=== PATIENT | female | born 1950 | race Caucasian/White ===

== ENCOUNTER 2016-11-13 15:43 | Emergency (ER) | payer MEDICARE, OTHER ==
[~2016-11-13] VITALS: Ht 160 cm; Wt 58.6 kg
[~2016-11-13 15:43] MED LIST: /ESCI10TA PO; /ESCI20TA PO; /PREG25CA PO; /PROC10TA PO; ALPR1TAB3 PO; BACT800T5 PO; BRIN1TAB3 PO; CLON0.25 PO; CRES10TA32 PO; CRES20TA PO; CRES5TAB PO; CYMB60CA3 PO; DIAZ5TAB PO; DULO1CAP3 PO; FLAG500T PO; GABA-282 PO; GABA600T PO; KEPP500T4 PO; KEPP500T6 PO; KLON0.5T PO; LEVO25TA4 PO; LEVO25TA5 PO; LEVO750T PO; METAPKT PO; MICR10CA PO; MYRB25TA PO; NADO20TA PO; NADO20TA2 PO; NEUR600T PO; NEUROTIN PO; PAXI20TA3 PO; RISP0.252 PO; RISP0.253 PO; RISP0.5T3 PO; SYNT25TA PO; TRAM50TA2 PO; TRAZ100T4 PO; TRAZO50TA PO; ULTR50TA PO; VALI5TAB PO; VITA50003 PO; XANA1TAB2 PO; [UNRECOGNIZED DRUG - CODE] PO
[2016-11-13 17:15] LABS: BASO % 0.4 % (0.0-1.0); EOS # 0.1 K/mm3 (0.0-0.50); EOS % 1.2 % (0.0-3.0); LARGE UNSTAINED CELL # 0.1 K/mm3 (0.0-0.4); LARGE UNSTAINED CELL % 1.8 % (0.0-4.0); LYMPH # 0.8 K/mm3 (1.5-4.5); LYMPH % 15.8 % (24.0-44.0); MEAN CORPUSCULAR HEMOGLOBIN 31.1 pg (27.0-33.0); MEAN CORPUSCULAR HGB CONC 32.8 g/dl (32.0-36.5); MEAN CORPUSCULAR VOLUME 94.7 fl (80.0-96.0); MONO # 0.4 K/mm3 (0.0-0.8); MONO % 7.6 % (0.0-5.0); NEUTROPHILS # 3.8 K/mm3 (1.8-7.7); NEUTROPHILS % 73.3 % (36.0-66.0); PLATELET COUNT, AUTOMATED 242 k/mm3 (150-450); WHITE BLOOD COUNT 5.2 K/mm3 (4.0-10.0)
--- NOTE | 2016-11-13 17:34 | REP ---
Chest one-view HISTORY: Chest pain Comparison: 05/29/2016 The lungs are clear. The heart is normal in size. The pulmonary vasculature is normal in appearance. An [id number] catheter is present. Impression: No acute disease. Signed by Wilfredo Esquivel MD 11/13/2016 05:26 P
[2016-11-13 17:39] VITALS: BP 150/85
[2016-11-13] MEDS ORDERED: NITROGLYCERIN 0.4 MG SUBL TABLET SL STA (17:39)
[2016-11-13] MEDS ORDERED: ASPIRIN 81 MG CHEW TABLET PO ONE (17:45)
--- NOTE | 2016-11-13 18:21 | ECGEPIP ---
Stationary ECG Study [facility] - ED Test Date: 2016-11-13 Pat Name: MOUSTAPHA AVILES Department: Room: - Gender: F Vp Respiratory: elsa : 1950 Requested By: Cara Patterson Order Number: [id number] Reading MD: Aron Cheatham Measurements Intervals [place] Rate: 60 P: 55 [place]: 110 QRS: 50 QRSD: 78 T: 55 QT: 408 QTc: 409 Interpretive Statements SINUS RHYTHM WITH SHORT MI INTERVAL Electronically Signed On 11-13-2016 18:20:56 EDT by Aron Cheatham
[2016-11-13 19:40] LABS: ALBUMIN 3.1 GM/DL (3.2-5.2); ALBUMIN/GLOBULIN RATIO 0.94 (1.00-1.93); ALKALINE PHOSPHATASE 95 U/L (45-117); ALT/SGPT 12 U/L (12-78); ANION GAP 6 MEQ/L (8-16); BILIRUBIN,DIRECT < 0.1 MG/DL (0.0-0.2); BILIRUBIN,TOTAL 0.2 MG/DL (0.2-1.0); BLOOD UREA NITROGEN 7 MG/DL (7-18); CALCIUM LEVEL 8.6 MG/DL (8.8-10.2); CARBON DIOXIDE LEVEL 30 MEQ/L (21-32); CHLORIDE LEVEL 106 MEQ/L (98-107); CREATININE FOR GFR 0.95 MG/DL (0.55-1.02); GLOMERULAR FILTRATION RATE > 60.0 (>45); GLUCOSE, FASTING 95 MG/DL (80-110); POTASSIUM SERUM 4.1 MEQ/L (3.5-5.1); SODIUM LEVEL 142 MEQ/L (136-145); TOTAL PROTEIN 6.4 GM/DL (6.4-8.2)
[2016-11-13 19:45] LABS: AST/SGOT 13 U/L (15-37)
[2016-11-13 23:04] VITALS: BP 134/75
--- NOTE | 2016-11-14 06:01 | ECGEPIP ---
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
== END 2016-11-14 00:02 | disposition home or self-care (01) ==
LOC: M ED 17:46
DX: R07.9 Chest pain, unspecified (principal); I11.0 Hypertensive heart disease with heart failure; E78.5 Hyperlipidemia, unspecified; G40.909 Epilepsy, unspecified, not intractable, without status epilepticus; F41.9 Anxiety disorder, unspecified; J30.1 Allergic rhinitis due to pollen; Z90.79 Acquired absence of other genital organ(s); Z90.11 Acquired absence of right breast and nipple; Z85.3 Personal history of malignant neoplasm of breast; Z79.899 Other long term (current) drug therapy; Z91.011 Allergy to milk products

== ENCOUNTER 2016-11-30 08:53 | Emergency (ER) | payer MEDICARE, OTHER ==
[~2016-11-30] VITALS: Ht 160 cm; Wt 58.2 kg
[~2016-11-30 08:53] MED LIST changes: +KEPP1TAB PO; -KEPP500T6 PO; +PAXI20TA29 PO; -PAXI20TA3 PO; +TRAZ-136 PO; -TRAZ100T4 PO; +VITA1CAP40 PO; -VITA50003 PO
[2016-11-30] MEDS ORDERED: CLON0.5T PO ×2 (10:52→11:54)
[2016-11-30] MEDS ORDERED: clonazePAM 0.5 MG TAB PO ONE (11:15)
[2016-11-30 12:06] VITALS: BP 144/85
== END 2016-11-30 12:07 | disposition home or self-care (01) ==
LOC: M ED 09:53
DX: F41.9 Anxiety disorder, unspecified (principal); Z91.14 Patient's other noncompliance with medication regimen; F32.9 Major depressive disorder, single episode, unspecified; Z79.899 Other long term (current) drug therapy; Z91.011 Allergy to milk products; Z91.09 Other allergy status, other than to drugs and biological substances

== ENCOUNTER → 2017-02-09 | Outpatient (CLI) | payer MEDICARE, OTHER ==
[~2017-02-09] MED LIST changes: +BRIN1TAB2 PO; +CLON0.5T PO; +DIAZ2TAB PO; +DOXE25CA PO; +HYDR-3716 PO; +MIRT1TAB PO; +OMEP40CA2 PO; +PROP10TA56 PO; +ROSU10TA2 PO; +VALI2TAB PO
[2017-02-09 13:08] LABS: BLOOD UREA NITROGEN 10 MG/DL (7-18); CREATININE FOR GFR 0.76 MG/DL (0.55-1.02); GLOMERULAR FILTRATION RATE > 60.0 (>45)
[2017-02-09 13:09] LABS: INR 0.89
== END ==
LOC: M WUC 09:46
PROVIDERS: ATTEND Internal Medicine Pulmonary Disease
DX: R91.8 Other nonspecific abnormal finding of lung field (principal); Z01.812 Encounter for preprocedural laboratory examination; Z79.01 Long term (current) use of anticoagulants

== ENCOUNTER → 2017-02-12 | Outpatient (CLI) | payer MEDICARE, OTHER ==
--- NOTE | 2017-02-12 12:14 | REP ---
MRI BRAIN WITHOUT AND WITH CONTRAST: 02/12/2017. Comparison: 06/01/2016, 08/16/2013, CT brain 05/29/2016. Technique: sagittal T1 with axial T1, T2 FLAIR, diffusion weighted images and ADC mapping sequences followed by infusion of 4 ml of ProHance and both coronal and axial at T1 sequences performed. Clinical history: Ataxia, repeated falls. Findings: The lateral ventricles are midline, symmetric, mildly prominent and proportionate to the diffuse cerebral atrophy. That atrophy is greatest in the temporal lobes and mild throughout. There are scattered punctate deep and subcortical white matter hyperintense T2 and FLAIR foci frontal and parietal lobes with some periventricular white matter changes as well. The basal ganglia show some hyperintense T2 foci suggesting dilated spaces of Virchow as benign findings. There is no vascular territory infarct, hemorrhage, mass or mass effect. No extra-axial fluid collection is noted. The cantu-white junction is maintained. Brainstem unremarkable. Cerebellum shows minimal atrophy. Basal cisterns are intact. Diffusion weighted images and ADC mapping sequence without evidence of restricted water diffusion. After contrast administration, there is no abnormal meningeal enhancement, gyriform enhancement, abnormal vascular lesion or enhancing mass. Orbits and contents symmetric and unremarkable. Seventh/eighth cranial nerve complexes and mastoids intact. Visualized sinuses clear. Corpus callosum, optic chiasm, and pituitary were normal. No cerebellar tonsillar ectopia. On the enhanced coronal images, there is some minimal sinus mucosal thickening or enhancement in the ethmoids. Impression: 1. Diffuse atrophy and small vessel ischemic changes noted without acute infarct, progression from prior studies, hemorrhage, mass or mass effect. Atrophy greatest in the temporal lobes. 2. Brainstem and cerebellum without acute finding and scattered white matter tract lesions are grossly stable. 3. No restricted water diffusion. Signed by Lazaro Albarado MD 02/12/2017 03:50 P
== END ==
LOC: M PLARAD 09:34
PROVIDERS: ATTEND Internal Medicine Pulmonary Disease
DX: R29.6 Repeated falls (principal)
CPT/HCPCS: 70553; A9576

== ENCOUNTER 2017-04-10 11:37 | Inpatient (IN) | payer MEDICARE, OTHER ==
[~2017-04-10] VITALS: Ht 157.5 cm; Wt 62.9 kg
[~2017-04-10 11:37] MED LIST changes: -BRIN1TAB2 PO; -DIAZ2TAB PO; -DOXE25CA PO; -HYDR-3716 PO; -MIRT1TAB PO; -OMEP40CA2 PO; -PROP10TA56 PO; -ROSU10TA2 PO; -VALI2TAB PO
[2017-04-10] MEDS ORDERED: DOXE25CA PO (12:03)
[2017-04-10] MEDS ORDERED: TRAZ-136 PO (12:03)
[2017-04-10] MEDS ORDERED: OMEP40CA2 PO (12:03)
[2017-04-10] MEDS ORDERED: HYDR-3716 PO (12:03)
[2017-04-10] MEDS ORDERED: ROSU10TA2 PO (12:03)
[2017-04-10] MEDS ORDERED: VALI2TAB PO (12:03)
[2017-04-10] MEDS ORDERED: PROP10TA56 PO (12:03)
[2017-04-10] MEDS ORDERED: BRIN1TAB2 PO (12:03)
[2017-04-10] MEDS ORDERED: DIAZ2TAB PO ×2 (12:03→17:51)
[2017-04-10] MEDS ORDERED: MIRT1TAB PO (12:03)
[2017-04-10] MEDS ORDERED: diazePAM 2 MG TAB PO ONE (13:15)
[2017-04-10] MEDS ORDERED: ACETAMINOPHEN TAB 650MG DOSE (2X325MG) PO ONE (13:15)
[2017-04-10] MEDS ORDERED: PROPRANOLOL 10 MG TAB PO ONE (13:15)
--- NOTE | 2017-04-10 13:58 | REP ---
Left femur two views: The distal 3/4's of the femur are included on the film. The hip is not included. There is no fracture or dislocation in the visible portion of the femur. No calcifications or foreign bodies. Impression: Negative femur as described. Signed by Tang John MD 04/10/2017 01:49 P
[2017-04-10 14:08] LABS: BASO % 0.1 % (0.0-1.0); IMMATURE GRANULOCYTE % 0.4 % (0-0); LYMPH # 0.5 10^3/uL (1.5-4.5); LYMPH % 5.3 % (24.0-44.0); MEAN CORPUSCULAR HEMOGLOBIN 29.8 pg (27.0-33.0); MEAN CORPUSCULAR HGB CONC 32.4 g/dl (32.0-36.5); MEAN CORPUSCULAR VOLUME 92.1 fl (80.0-96.0); MONO # 0.9 10^3/uL (0.0-0.8); MONO % 9.4 % (0.0-5.0); NEUTROPHILS # 8.3 10^3/uL (1.8-7.7); NEUTROPHILS % 84.8 % (36.0-66.0); PLATELET COUNT, AUTOMATED 238 10^3/uL (150-450); RED CELL DISTRIBUTION WIDTH 13.8 % (11.5-14.5); WHITE BLOOD COUNT 9.8 10^3/uL (4.0-10.0)
--- NOTE | 2017-04-10 14:34 | REP ---
LEFT ANKLE, FOUR VIEWS: HISTORY: Trauma. There is no acute fracture or dislocation. The joint space is normal in appearance. IMPRESSION: There is no acute fracture or dislocation. Signed by Wilfredo Esquivel MD 04/10/2017 02:36 P
--- NOTE | 2017-04-10 14:37 | REP ---
LEFT TIBIA/FIBULA, FOUR VIEWS: HISTORY: Trauma. There is no acute fracture or dislocation. The joint spaces are normal in appearance. IMPRESSION: There is no acute fracture or dislocation. Signed by Wilfredo Esquivel MD 04/10/2017 03:00 P
--- NOTE | 2017-04-10 14:55 | REP ---
AP PELVIS AND LEFT HIP: 04/10/2017. Clinical history: Trauma. Comparison: X-ray abdomen 04/29/2015. Findings: AP pelvis: Pelvic ring intact. SI joints, sacral ala and foramina symmetric and normal. Symphysis pubis and pubic rami were intact. Degenerative changes in the lower lumbar facets and disc spaces. Hip joint space is symmetric. Small rim osteophytes acetabular roof. The hips show no visible fractures. The pubic rami intact. Left hip: AP and frog-leg views show minor rim osteophyte, acetabular roof but no fracture, subluxation or focal bone lesion of the hip. There is no evidence of AVN. No abnormal soft-tissue calcification or avulsions. Impression: 1. Some degenerative changes lower lumbar spine, but otherwise negative AP pelvis and left hip. Signed by Lazaro Albarado MD 04/10/2017 04:52 P
--- NOTE | 2017-04-10 15:00 | REP ---
CHEST AP LATERAL SUPINE: 04/10/2017. Clinical history: Fever and weakness. Comparison: Portable chest 11/13/2016, 05/29/2016. Findings: There is an indwelling left subclavian port catheter with tip in the SVC unchanged. The lung varghese are over penetrated. There appear to be nodular opacities bilaterally in the mid lung zone and partially in the right lower lung zone suggested. There is no effusion. Some increased vascularity in the upper lobes particularly on the right. No layering effusion or blunting of CP angles noted. No compression deformity in the spine. No paraspinal abnormality. Airway intact. Prior right mastectomy. Impression: 1. Densities projecting over the right and left mid lung zone and right lower lobe may be nodular infiltrates or other parenchymal lesions. The under penetrated chest limits this evaluation on the supine projection. 2. Indwelling left subclavian port catheter unchanged. 3. No acute bony finding, widening of the mediastinum, cardiomegaly or sonia edema. Consider chest CT. Signed by Lazaro Albarado MD 04/10/2017 04:52 P
--- NOTE | 2017-04-10 15:02 | REP ---
Emergency left lower extremity duplex venous ultrasound: History: Swelling. Question DVT. Findings: The deep veins from the left groin to the left popliteal fossa are swollen and contain hypoechoic thrombus consistent with occlusive DVT. No color flow is seen. The occlusive DVT involves the common femoral vein through the popliteal vein as well as the proximal several centimeters of the profunda femoral vein in the deep system. There is also occlusive thrombosis of the proximal aspect of the greater saphenous vein. Impression: Extensive occlusive left lower extremity deep vein thrombosis from the groin to the popliteal fossa. Signed by Raymond Peralta MD 04/10/2017 05:18 P
[2017-04-10 15:24] LABS: INR 1.12
[2017-04-10 15:36] LABS: ALBUMIN 2.3 GM/DL (3.2-5.2); ALBUMIN/GLOBULIN RATIO 0.61 (1.00-1.93); ALKALINE PHOSPHATASE 159 U/L (45-117); ALT/SGPT 25 U/L (12-78); ANION GAP 10 MEQ/L (8-16); AST/SGOT 47 U/L (7-37); BILIRUBIN,DIRECT 0.1 MG/DL (0.0-0.2); BILIRUBIN,TOTAL 0.4 MG/DL (0.2-1.0); BLOOD UREA NITROGEN 14 MG/DL (7-18); CALCIUM LEVEL 8.2 MG/DL (8.8-10.2); CARBON DIOXIDE LEVEL 26 MEQ/L (21-32); CHLORIDE LEVEL 98 MEQ/L (98-107); FREE T4 1.79 NG/DL (0.76-1.46); GLOMERULAR FILTRATION RATE > 60.0 (>45); GLUCOSE, FASTING 110 MG/DL (80-110); POTASSIUM SERUM 4.9 MEQ/L (3.5-5.1); SODIUM LEVEL 134 MEQ/L (136-145); TOTAL PROTEIN 6.1 GM/DL (6.4-8.2)
[2017-04-10] MEDS ORDERED: ISOVUE-370 76% 100ML VIAL (Q9967) As Ordered ONE (15:55)
[2017-04-10] MEDS ORDERED: ONDANSETRON 4MG/2ML VIAL (J2405) IV PRN (19:30)
[2017-04-10] MEDS ORDERED: NORCO, ANEXSIA 5/325MG TABLET (HYDROcodone/ACETAMINOPHEN) PO PRN (19:30)
[2017-04-10] MEDS ORDERED: ACETAMINOPHEN TAB 650MG DOSE (2X325MG) PO PRN (19:30)
[2017-04-10] MEDS: MORPHINE 2 MG/ML 1ML SYRINGE IV PRN (19:54)
[2017-04-10] MEDS: ENOXAPARIN 80 MG/0.8 ML SYRINGE (J1650) SC SCH (23:23)
[2017-04-10] MEDS: traZODone 50 MG TAB PO SCH (23:23)
[2017-04-10] MEDS: PROPRANOLOL 10 MG TAB PO SCH (23:24)
[2017-04-10] MEDS: DOXEPIN 25 MG CAP PO SCH (23:25)
[2017-04-10 23:50] VITALS: BP 130/64
[2017-04-11] MEDS: SENOKOT S TAB PO SCH ×3 (00:33→20:49)
[2017-04-11] MEDS: MIRTAZAPINE 7.5MG PER 1/2 TABLET PO SCH ×2 (00:33→20:49)
[2017-04-11] MEDS: diazePAM 2 MG TAB PO PRN ×4 (00:34→20:54)
[2017-04-11] MEDS: MORPHINE 2 MG/ML 1ML SYRINGE IV PRN ×2 (00:35→06:59)
--- NOTE | 2017-04-11 01:12 | HPE ---
DATE OF ADMISSION: 04/10/2017 Ms. Avalos is a patient of Lesly Armendariz. She sees Ron Steel at the mental health service at [facility]. CHIEF COMPLAINT: Terrible pain in her groin. HISTORY OF PRESENT ILLNESS: As follows: This is a 66-year-old with presumed recurrent breast cancer with lung and mediastinal metastases (METS) who has been considering hospice care at home. She has had increasing left leg pain and swelling. It has increased and she has a lot of pain in her left groin. She has fallen a couple times at home just because she has been very weak. She has had no focal weakness or seizures. She has been helped by her sister, lives in [facility], into the tub yesterday to get cleaned up. It was hard to get her into the tub, but almost impossible to get her out just because of generalized weakness and again, left leg has been painful and swollen. Lower extremity Doppler showed extensive deep venous thrombosis (DVT) and I was called for admission. PAST MEDICAL HISTORY: Known for: 1. Anxiety. 2. History of breast cancer on the right status post mastectomy. She tolerated one round of chemotherapy postoperatively. 3. Depression. 4. Hyperlipidemia. 5. Hypothyroidism. PAST SURGICAL HISTORY: Known for: 1. Right-sided mastectomy. 2. Hysterectomy. Socially, does not use tobacco or alcohol. She lives at home alone. She used to live with her mother until her mother . ALLERGIES: She has allergies listed to SANDOVAL, MILK PROTEIN EXTRACT. FAMILY HISTORY: Otherwise unremarkable. MEDICATION: Includes: - Riverside 7.5 - diazepam 2 mg five times a day for anxiety - doxepin 25 mg by mouth twice a day - vitamin D supplement - Synthroid - mirtazapine - omeprazole - propranolol - Crestor - trazodone - Myrbetriq - Trintellix REVIEW OF SYSTEMS: Notable for no headache, no visual changes, no runny nose, no sore throat. She has pain at the site of a lump on her right chest wall. She has had some shortness of breath without cough. She has had abdominal fullness with eating. She feels hungry, but has early satiety and then dyspepsia after eating. No focal weakness. Otherwise, unremarkable. PHYSICAL EXAMINATION: Temperature 100.4, pulse 102, respiratory rate 20, blood pressure 110/55, pulse oximetry 94% on room air. She is awake, appropriately interactive, somewhat flattened affect, answering questions appropriately with good insight into her current condition and decisions she has made regarding her cancer. Pupils equally round and reactive. Mucous membranes are moist. Neck is supple, thick. There is a baseball sized growth that is tender to touch, not particularly warm with smooth covering over her right upper chest medially located. There is a surgical mastectomy site as well. Heart is in a regular rate and rhythm. Normal S1, S2. Breathing is symmetrical and rested. Abdomen is soft, doughy, nontender. Right lower extremity is smaller than the left. Left is edematous, tender to touch with edema to the level of the groin. She is moving all four extremities. Facies are symmetrical. White cell count 9.8, hemoglobin 9.1, platelets of 238. INR 1.12. BUN 14, creatinine 0.9, sodium is 134, alkaline phosphatase 159, CK 357, troponin I less than 0.02, total protein 6.1, TSH is 0.83. Two blood cultures and a urine culture are pending. Lower extremity Doppler shows extensive occlusive left lower extremity DVT from the groin to the popliteal fossa. Chest x-ray shows densities over the right mid and left mid lung zone, right lower lobe, left subclavian port. No ankle fracture. No femur fracture. No femoral artery dissection. Hip and pelvis x-ray shows degenerative changes. Tib-fib shows no fracture or dislocation. My assessment is as follows: This is a 66-year-old, extensive left lower deep venous thrombosis (DVT) in the setting of untreated presumed recurrence of breast cancer. Patient will be admitted for a 2-night hospital stay to pursue further workup and treatment. Plan will be as follows: 1. Oncologic. Patient underwent mastectomy and partial chemotherapy electing not to pursue further care. It was not well tolerated. This summer, approximately in January of 2017, patient's cancer was re-visualized on a CT scan. [facility] was [facility], who started workup. She has elected not to pursue further workup. At this point, since that time, she has a growth on her right chest that has become larger, as well as this finding in her left leg. She has discussed this with her sister at some length and she thinks it about it constantly. She does not wish for any aggressive treatment and wants pain control and to remain comfortable. She suspects that she will pass away as a result of this illness. I did discuss a Medical Orders for Life-Sustaining Treatment (MOLST) form with her. She has suggested that she would like to be DO NOT RESUSCITATE, DO NOT INTUBATE, does not want a feeding tube, would be willing to try antibiotics and intravenous (IV) fluid. Would also like to speak with hospice. 2. Patient has left lower extremity DVT and possibly has a pulmonary embolism. Will be treated with Lovenox in the current setting. Plan would be for lifelong Lovenox should she wish to continue to treat this DVT. 3. Patient has poor pain control, has been using Riverside at home. Will upgrade to IV morphine for the moment. Will continue her benzodiazepines. 4. Patient has hyponatremia. 5. Patient has hypothyroidism. 6. Patient is noted to be anemic with normocytic cells. This is an increasing level of anemia from last lab in the computer, which was 12.5 on 11/13/2016. 7. Patient has history of depression. We will continue her diazepam, doxepin, mirtazapine, and trazodone. Myrbetriq is not on formulary, neither is Trintellix and those will not be ordered in the current setting.
[2017-04-11] MEDS ORDERED: LEVOTHYROXINE 25MCG TABLET (0.025MG) PO SCH (06:00)
[2017-04-11 07:09] LABS: MEAN CORPUSCULAR HEMOGLOBIN 28.7 pg (27.0-33.0); MEAN CORPUSCULAR HGB CONC 31.5 g/dl (32.0-36.5); MEAN CORPUSCULAR VOLUME 91.2 fl (80.0-96.0); PLATELET COUNT, AUTOMATED 245 10^3/uL (150-450); RED CELL DISTRIBUTION WIDTH 13.7 % (11.5-14.5); WHITE BLOOD COUNT 9.7 10^3/uL (4.0-10.0)
[2017-04-11 07:44] LABS: ANION GAP 9 MEQ/L (8-16); BLOOD UREA NITROGEN 11 MG/DL (7-18); CALCIUM LEVEL 7.9 MG/DL (8.8-10.2); CARBON DIOXIDE LEVEL 27 MEQ/L (21-32); CHLORIDE LEVEL 101 MEQ/L (98-107); CREATININE FOR GFR 0.79 MG/DL (0.55-1.02); GLOMERULAR FILTRATION RATE > 60.0 (>45); GLUCOSE, FASTING 119 MG/DL (80-110); POTASSIUM SERUM 4.2 MEQ/L (3.5-5.1); SODIUM LEVEL 137 MEQ/L (136-145)
[2017-04-11 08:00] VITALS: BP 142/69
--- NOTE | 2017-04-11 08:41 | REP ---
CT pulmonary angiogram with IV contrast: History: Weakness, tachycardia. Question pulmonary embolus. Procedure: According to the technologist notes, the exam could not be completed due to lack of IV access. I am informed that it was cancelled. Signed by Raymond Peralta MD 04/11/2017 11:08 A
[2017-04-11] MEDS: DOXEPIN 25 MG CAP PO SCH ×2 (08:51→20:49)
[2017-04-11] MEDS: ENOXAPARIN 80 MG/0.8 ML SYRINGE (J1650) SC SCH (08:51)
[2017-04-11] MEDS: NORCO, ANEXSIA 5/325MG TABLET (HYDROcodone/ACETAMINOPHEN) PO PRN ×2 (08:57→16:48)
[2017-04-11 09:00] VITALS: BP 142/69
[2017-04-11] MEDS ORDERED: ROSUVASTATIN 10 MG TAB (CRESTOR) PO SCH (09:00)
[2017-04-11] MEDS: PROPRANOLOL 10 MG TAB PO SCH (09:00)
[2017-04-11] MEDS ORDERED: OMEPRAZOLE 20 MG CAP PO SCH (09:00)
[2017-04-11] MEDS ORDERED: ISOVUE-370 76% 100ML VIAL (Q9967) As Ordered ONE (11:48)
[2017-04-11 13:26] LABS: BASO % 0.2 % (0.0-1.0); EOS % 0.2 % (0.0-3.0); IMMATURE GRANULOCYTE % 0.3 % (0-0); LYMPH # 0.7 10^3/uL (1.5-4.5); LYMPH % 7.6 % (24.0-44.0); MEAN CORPUSCULAR HEMOGLOBIN 28.9 pg (27.0-33.0); MEAN CORPUSCULAR HGB CONC 30.9 g/dl (32.0-36.5); MEAN CORPUSCULAR VOLUME 93.3 fl (80.0-96.0); MONO # 0.8 10^3/uL (0.0-0.8); MONO % 9.3 % (0.0-5.0); NEUTROPHILS # 7.2 10^3/uL (1.8-7.7); NEUTROPHILS % 82.4 % (36.0-66.0); PLATELET COUNT, AUTOMATED 264 10^3/uL (150-450); RED CELL DISTRIBUTION WIDTH 13.9 % (11.5-14.5); RETIC HEMOGLOBIN EQUIVALENT 25.2 pg (24-36); RETICULOCYTE % 1.8 % (0.5-1.5); WHITE BLOOD COUNT 8.8 10^3/uL (4.0-10.0)
[2017-04-11 13:36] LABS: REASON FOR REVIEW COMPREHENSIVE REVIEW
[2017-04-11 14:00] VITALS: BP 90/45
[2017-04-11] MEDS ORDERED: LORazepam 2 MG/ML VIAL (J2060) IV PRN (15:30)
[2017-04-11] MEDS ORDERED: SCOPOLAMINE 1.5 MG TRANSDERMAL TD PRN (15:30)
--- NOTE | 2017-04-11 16:25 | IPN ---
DATE: 04/11/2017 SUBJECTIVE: Patient is seen and examined in the morning. At the time of the morning encounter, patient stated that she had pain of the upper chest where she had the mass lesion. The pain is worsened with inspiration. There is pain in the right lower lobe. Patient is aware that she may have recurrence of breast tumor with metastasis. She is not sure how to proceed with the next step and she requires some time to discuss with the family member. Due to concern for pulmonary embolism (PE), patient was sent down for CT angiogram. Later, when the result was available, I presented the result to the patient and patient's sister, Ms. Sun, with regard to the CT angiogram findings. After some discussion, patient decided to pursue comfort measures only and a new Medical Orders for Life-Sustaining Treatment (MOLST) form was updated. OBJECTIVE: VITAL SIGNS: Temperature 98.7, pulse 105, respirations 18, blood pressure 90/45, pulse oximetry 97% in room air. GENERAL: Pale, fatigued, no sign of acute distress at the time of encounter, alert and oriented times three. HEENT: Normocephalic, atraumatic. Extraocular motors grossly intact. CARDIOVASCULAR: Positive S1, S2, tachycardic, heart rate greater than 100. LUNGS: Clear to auscultation bilaterally. ABDOMEN: Soft, nontender, nondistended. Bowel sounds present. MUSCULOSKELETAL: There is a mass-like bulging located at the mid left upper chest, mild discomfort to palpation. No lower extremity edema. No sign of cyanosis. LABORATORY DATA: WBC 9.7, hemoglobin 10.8, hematocrit 24.8, platelet count 245. Sodium 137, potassium 4.2, chloride 101, carbon dioxide 27, BUN 11, creatinine 0.79, GFR greater than 60, fasting glucose 119, calcium 7.9, lactate dehydrogenase is 368. IMAGING STUDIES: CT angiogram showed evidence of pulmonary embolism in the right lower lobe pulmonary artery and extending into the medial and posterior basal segmental arteries of the right lower lobe. There are numerous metastatic lesions throughout the chest involving all lobes, the largest about 2.3 cm. Anterior chest wall mass destroying the upper margin of the os sternum adjacent to the manubrium with a mass measuring 8.9 x 3.5 x 7.9 cm. There are also axillary and chest wall masses deep to the right pectoralis minor. ASSESSMENT: 1. Recurrent breast cancer with metastasis. 2. Pulmonary embolism with right lower extremity deep venous thrombosis (DVT). 3. Anxiety/depression. 4. Hyperlipidemia. 5. Hypothyroidism. 6. Anemia. PLAN: The new CT angiogram findings were discussed with the patient and patient is aware of the mass, most likely secondary to recurrent breast cancer with metastasis throughout the whole lung lobes. Patient also has a significant pulmonary embolism (PE) with a deep venous thrombosis (DVT). Patient decided to pursue comfort measures. A new Medical Orders for Life-Sustaining Treatment (MOLST) form was updated with patient's sister, Ms. Sun, as a witness and hospice has been consulted.
--- NOTE | 2017-04-11 18:07 | REP ---
CT ANGIOGRAM CHEST: 04/11/2017. Comparison: CXR 04/10/2017, CT chest 09/29/2013. Clinical history: Evaluate for pulmonary embolism. Dyspnea. Known breast carcinoma. Prior right mastectomy. Uterine carcinoma. Technique: The patient received bolus of 75 ml Isovue 370 with pulmonary angiogram protocol and thick slab MIP reformatting in coronal and sagittal reformats. Findings: There are bilateral lung nodules up to 2.2 cm, somewhat lobulated but all irregular in appearance and these correspond to the findings on CT. These are solid. In addition, there are areas of patchy atelectasis in the lower lung zones versus fibrosis. There is bilateral hilar and mediastinal adenopathy, pathologic size. AP window up to 10 mm. Subcarinal 11 mm. Left hilar 11 mm and right hilar 14 mm. The aorta without aneurysm or dissection. The main right and left pulmonary arteries are without filling defects. The right lower lobe pulmonary artery shows a filling defect as do the segmental arteries of the medial posterior basal segment. I do not see left lower lobe, upper lobe or lingular filling defects. There is no pleural effusion. No pneumothorax. The left axilla is without a mass. However, there are multiple enlarged nodes or masses in the right axilla and chest wall along with a very large sternomanubrial junction and central right paracentral chest with very large soft tissue mass measuring 8.9 cm transverse by 3.5 cm deep by 7.9 cm long. This shows destruction of the superior aspect of the sternum on the left. There are also chest wall masses on that right side deep to the pectoralis minor. I do not see supraclavicular mass. Bone windows show minor wedging mid thoracic vertebral body without paraspinal hematoma to suggest acute finding. No acute destructive lesion in the spine. Visualized ribs, scapulae, and portions of the clavicles seen were unremarkable. The upper abdomen shows that portion of liver, spleen, gallbladder and pancreas intact although none of these are seen in their entirety. Adrenal glands are normal. No hiatal hernia. Patient has had a prior right mastectomy. Impression: 1. There is CT evidence of a pulmonary thromboembolism in the right lower lobe pulmonary artery and extending into the medial and posterior basal segmental arteries of that right lower lobe. 2. There are numerous metastatic lesions throughout the chest involving all lobes, the largest about 2.3 cm. These are solid, no effusion. 3. Anterior chest wall mass destroying the upper margin of the sternum adjacent to the manubrium and with a mass measuring 8.9 x 3.5 x 7.9 cm. There are also axillary and chest wall masses deep to the right pectoralis minor. I do not see other destructive lesions to suggest other bony metastatic findings. Signed by Lazaro Albarado MD 04/12/2017 09:47 A
[2017-04-11] MEDS: ENOXAPARIN 60 MG/0.6 ML SYR (J1650) SC SCH (20:49)
[2017-04-11] MEDS: traZODone 50 MG TAB PO SCH (20:49)
--- NOTE | 2017-04-12 07:03 | ECGEPIP ---
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
[2017-04-12] MEDS: ENOXAPARIN 60 MG/0.6 ML SYR (J1650) SC SCH ×2 (08:22→20:15)
[2017-04-12] MEDS: NORCO, ANEXSIA 5/325MG TABLET (HYDROcodone/ACETAMINOPHEN) PO PRN ×3 (08:22→20:16)
[2017-04-12] MEDS: DOXEPIN 25 MG CAP PO SCH ×2 (08:22→20:15)
[2017-04-12] MEDS: SENOKOT S TAB PO SCH ×2 (08:22→20:15)
[2017-04-12] MEDS: diazePAM 2 MG TAB PO PRN ×3 (08:24→20:20)
[2017-04-12] MEDS: MORPHINE 2 MG/ML 1ML SYRINGE IV PRN ×2 (11:21→19:43)
--- NOTE | 2017-04-12 18:03 | IPNPDOC ---
Text Note Date of Service The patient was seen on 04/12/17. NOTE SUBJECTIVE: Patient is seen and examined in the morning. Patient still experience discomfort at the location where she has tumor recurrence. However, she states her pain is manageable with current pain medication regimen. OBJECTIVE: VITAL SIGNS: Listed below GENERAL: Pale, fatigued, no sign of acute distress at the time of encounter, alert and oriented times three. HEENT: Normocephalic, atraumatic. Extraocular motors grossly intact. CARDIOVASCULAR: Positive S1, S2, tachycardic, heart rate greater than 100. LUNGS: Clear to auscultation bilaterally. ABDOMEN: Soft, nontender, nondistended. Bowel sounds present. MUSCULOSKELETAL: There is a mass-like bulging located at the mid left upper chest, mild discomfort to palpation. No lower extremity edema. No sign of cyanosis. LABORATORY DATA: Listed below IMAGING STUDIES: CT angiogram showed evidence of pulmonary embolism in the right lower lobe pulmonary artery and extending into the medial and posterior basal segmental arteries of the right lower lobe. There are numerous metastatic lesions throughout the chest involving all lobes, the largest about 2.3 cm. Anterior chest wall mass destroying the upper margin of the os sternum adjacent to the manubrium with a mass measuring 8.9 x 3.5 x 7.9 cm. There are also axillary and chest wall masses deep to the right pectoralis minor. ASSESSMENT: 1. Recurrent breast cancer with metastasis. 2. Pulmonary embolism with right lower extremity deep venous thrombosis (DVT). 3. Anxiety/depression. 4. Hyperlipidemia. 5. Hypothyroidism. 6. Anemia. 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 Desires placement in hospice facility. Hospice service has been consulted. Continue current hospice medications. VS,Fishbone, I+O VS, Fishbone, I+O Vital Signs Date Time Temp Pulse Resp B/P (MAP) Pulse Ox O2 Delivery O2 Flow Rate FiO2 04/12/17 08:00 Room Air 04/11/17 14:00 98.7 105 18 90/45 (60) 97 I&O- Last 24 Hours up to 6 AM 04/13/17 06:00 Intake Total 360 ml Output Total 900 ml Balance -540 ml LEXUS GORDON DO Apr 12, 2017 18:03
[2017-04-12] MEDS: traZODone 50 MG TAB PO SCH (20:15)
[2017-04-12] MEDS: MOM 30ML SUSPENSION UDC PO PRN (20:15)
[2017-04-12] MEDS: MIRTAZAPINE 7.5MG PER 1/2 TABLET PO SCH (20:15)
[2017-04-13] MEDS: ENOXAPARIN 60 MG/0.6 ML SYR (J1650) SC SCH ×2 (08:36→19:48)
[2017-04-13] MEDS: DOXEPIN 25 MG CAP PO SCH ×2 (08:36→19:48)
[2017-04-13] MEDS: diazePAM 2 MG TAB PO PRN ×3 (08:36→19:53)
[2017-04-13] MEDS: SENOKOT S TAB PO SCH ×2 (08:36→19:48)
[2017-04-13] MEDS: NORCO, ANEXSIA 5/325MG TABLET (HYDROcodone/ACETAMINOPHEN) PO PRN ×3 (09:11→19:54)
[2017-04-13] MEDS: MORPHINE 2 MG/ML 1ML SYRINGE IV PRN ×3 (10:55→22:57)
--- NOTE | 2017-04-13 15:55 | IPNPDOC ---
Text Note Date of Service The patient was seen on 04/13/17. NOTE SUBJECTIVE: Patient is seen and examined in the morning. Patient still experience discomfort at the location where she has tumor recurrence. However, she states her pain is manageable with current pain medication regimen. No issue with oral intake. No shortness of breath. OBJECTIVE: GENERAL: Pale, fatigued, no sign of acute distress at the time of encounter, alert and oriented times three. HEENT: Normocephalic, atraumatic. Extraocular motors grossly intact. CARDIOVASCULAR: Positive S1, S2, tachycardic, heart rate greater than 100. LUNGS: Clear to auscultation bilaterally. ABDOMEN: Soft, nontender, nondistended. Bowel sounds present. MUSCULOSKELETAL: There is a mass-like bulging located at the mid left upper chest, mild discomfort to palpation. No lower extremity edema. No sign of cyanosis. IMAGING STUDIES: CT angiogram showed evidence of pulmonary embolism in the right lower lobe pulmonary artery and extending into the medial and posterior basal segmental arteries of the right lower lobe. There are numerous metastatic lesions throughout the chest involving all lobes, the largest about 2.3 cm. Anterior chest wall mass destroying the upper margin of the os sternum adjacent to the manubrium with a mass measuring 8.9 x 3.5 x 7.9 cm. There are also axillary and chest wall masses deep to the right pectoralis minor. ASSESSMENT: 1. Recurrent breast cancer with metastasis. 2. Pulmonary embolism with right lower extremity deep venous thrombosis (DVT). 3. Anxiety/depression. 4. Hyperlipidemia. 5. Hypothyroidism. 6. Anemia. 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 Desires placement in hospice facility. Hospice service has been consulted. Continue current hospice medications. Pain is adequately controlled. VS,Fishbone, I+O VS, Fishbone, I+O Vital Signs Date Time Temp Pulse Resp B/P (MAP) Pulse Ox O2 Delivery O2 Flow Rate FiO2 04/13/17 08:00 Room Air 04/12/17 20:46 18 04/11/17 14:00 98.7 105 90/45 (60) 97 I&O- Last 24 Hours up to 6 AM 04/14/17 06:00 Intake Total 360 ml Balance 360 ml LEXUS GORDON DO Apr 13, 2017 15:55
[2017-04-13] MEDS: traZODone 50 MG TAB PO SCH (19:48)
[2017-04-13] MEDS: MIRTAZAPINE 7.5MG PER 1/2 TABLET PO SCH (19:48)
[2017-04-13] MEDS: LORazepam 1 MG TAB PO PRN (22:57)
[2017-04-14] MEDS: diazePAM 2 MG TAB PO PRN ×5 (00:30→18:57)
[2017-04-14] MEDS: NORCO, ANEXSIA 5/325MG TABLET (HYDROcodone/ACETAMINOPHEN) PO PRN ×5 (00:31→18:57)
[2017-04-14] MEDS: DOXEPIN 25 MG CAP PO SCH ×2 (09:09→19:41)
[2017-04-14] MEDS: ENOXAPARIN 60 MG/0.6 ML SYR (J1650) SC SCH ×2 (09:10→19:40)
[2017-04-14] MEDS: SENOKOT S TAB PO SCH ×2 (09:10→19:40)
--- NOTE | 2017-04-14 11:45 | IPNPDOC ---
Text Note Date of Service The patient was seen on 04/14/17. NOTE SUBJECTIVE: Patient is seen and examined in the morning. Patient still experience discomfort at the location where she has tumor recurrence. However, she states her pain is manageable with current pain medication regimen. No issue with oral intake. No shortness of breath. No issue with urination or bowel movement. OBJECTIVE: GENERAL: Pale, fatigued, no sign of acute distress at the time of encounter, alert and oriented times three. HEENT: Normocephalic, atraumatic. Extraocular motors grossly intact. CARDIOVASCULAR: Positive S1, S2, tachycardic. LUNGS: Clear to auscultation bilaterally. ABDOMEN: Soft, nontender, nondistended. Bowel sounds present. MUSCULOSKELETAL: There is a mass-like bulging located at the mid left upper chest, mild discomfort to palpation. No lower extremity edema. No sign of cyanosis. IMAGING STUDIES: CT angiogram showed evidence of pulmonary embolism in the right lower lobe pulmonary artery and extending into the medial and posterior basal segmental arteries of the right lower lobe. There are numerous metastatic lesions throughout the chest involving all lobes, the largest about 2.3 cm. Anterior chest wall mass destroying the upper margin of the os sternum adjacent to the manubrium with a mass measuring 8.9 x 3.5 x 7.9 cm. There are also axillary and chest wall masses deep to the right pectoralis minor. ASSESSMENT: 1. Recurrent breast cancer with metastasis. 2. Pulmonary embolism with right lower extremity deep venous thrombosis (DVT). 3. Anxiety/depression. 4. Hyperlipidemia. 5. Hypothyroidism. 6. Anemia. 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 Desires placement in hospice facility. Hospice service has been consulted. Continue current hospice medications. Pain is adequately controlled. Patient is on waiting list for hospice facility. Will follow up with social service on Sunday. VS,Fishbone, I+O VS, Fishbone, I+O Vital Signs Date Time Temp Pulse Resp B/P (MAP) Pulse Ox O2 Delivery O2 Flow Rate FiO2 04/14/17 10:25 18 Room Air 04/11/17 14:00 98.7 105 90/45 (60) 97 FLYNNRaymondLEXUS DO Apr 14, 2017 11:45
[2017-04-14] MEDS: MORPHINE 2 MG/ML 1ML SYRINGE IV PRN ×2 (12:10→19:45)
[2017-04-14] MEDS: MIRTAZAPINE 7.5MG PER 1/2 TABLET PO SCH (19:40)
[2017-04-14] MEDS: traZODone 50 MG TAB PO SCH (19:41)
[2017-04-14] MEDS: LORazepam 1 MG TAB PO PRN (19:44)
[2017-04-14] MEDS: MORPHINE 10MG/0.5ML ORAL CONCENTRATE SOLUTION U/D SL PRN (22:28)
[2017-04-15] MEDS: MORPHINE 10MG/0.5ML ORAL CONCENTRATE SOLUTION U/D SL PRN ×9 (02:29→23:12)
[2017-04-15] MEDS: LORazepam 1 MG TAB PO PRN ×4 (02:29→20:36)
[2017-04-15] MEDS: NORCO, ANEXSIA 5/325MG TABLET (HYDROcodone/ACETAMINOPHEN) PO PRN ×5 (02:30→20:38)
[2017-04-15] MEDS: diazePAM 2 MG TAB PO PRN ×5 (04:54→23:11)
[2017-04-15] MEDS: DOXEPIN 25 MG CAP PO SCH ×2 (08:57→20:36)
[2017-04-15] MEDS: SENOKOT S TAB PO SCH ×2 (08:57→20:36)
[2017-04-15] MEDS: ENOXAPARIN 60 MG/0.6 ML SYR (J1650) SC SCH ×2 (08:58→20:35)
--- NOTE | 2017-04-15 14:14 | IPNPDOC ---
Text Note Date of Service The patient was seen on 04/15/17. NOTE SUBJECTIVE: Patient is seen and examined in the morning. She states her pain is manageable with current pain medication regimen. No issue with oral intake. No shortness of breath. No issue with urination or bowel movement. OBJECTIVE: GENERAL: Pale, fatigued, no sign of acute distress at the time of encounter, alert and oriented times three. HEENT: Normocephalic, atraumatic. Extraocular motors grossly intact. CARDIOVASCULAR: Positive S1, S2, tachycardic. LUNGS: Clear to auscultation bilaterally. ABDOMEN: Soft, nontender, nondistended. Bowel sounds present. MUSCULOSKELETAL: There is a mass-like bulging located at the mid left upper chest, mild discomfort to palpation. No lower extremity edema. No sign of cyanosis. IMAGING STUDIES: CT angiogram showed evidence of pulmonary embolism in the right lower lobe pulmonary artery and extending into the medial and posterior basal segmental arteries of the right lower lobe. There are numerous metastatic lesions throughout the chest involving all lobes, the largest about 2.3 cm. Anterior chest wall mass destroying the upper margin of the os sternum adjacent to the manubrium with a mass measuring 8.9 x 3.5 x 7.9 cm. There are also axillary and chest wall masses deep to the right pectoralis minor. ASSESSMENT: 1. Recurrent breast cancer with metastasis. 2. Pulmonary embolism with right lower extremity deep venous thrombosis (DVT). 3. Anxiety/depression. 4. Hyperlipidemia. 5. Hypothyroidism. 6. Anemia. 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 Desires placement in hospice facility. Hospice service has been consulted. Continue current hospice medications. Pain is adequately controlled. Patient is on waiting list for hospice facility. Will follow up with social service on Sunday. VS,Fishbone, I+O VS, Fishbone, I+O Vital Signs Date Time Temp Pulse Resp B/P (MAP) Pulse Ox O2 Delivery O2 Flow Rate FiO2 04/15/17 13:33 Room Air 04/15/17 12:05 16 04/11/17 14:00 98.7 105 90/45 (60 97 I&O- Last 24 Hours up to 6 AM 04/16/17 06:00 Intake Total 360 ml Output Total 220 ml Balance 140 ml LEXUS GORDON DO Apr 15, 2017 14:14
[2017-04-15] MEDS: MOM 30ML SUSPENSION UDC PO PRN (20:35)
[2017-04-15] MEDS: MIRTAZAPINE 7.5MG PER 1/2 TABLET PO SCH (20:36)
[2017-04-15] MEDS: traZODone 50 MG TAB PO SCH (20:37)
[2017-04-16] MEDS: MORPHINE 10MG/0.5ML ORAL CONCENTRATE SOLUTION U/D SL PRN ×8 (01:08→22:10)
[2017-04-16] MEDS: LORazepam 1 MG TAB PO PRN ×5 (01:09→22:09)
[2017-04-16] MEDS: NORCO, ANEXSIA 5/325MG TABLET (HYDROcodone/ACETAMINOPHEN) PO PRN ×5 (01:09→20:46)
[2017-04-16] MEDS: diazePAM 2 MG TAB PO PRN ×4 (04:54→20:45)
[2017-04-16] MEDS: DOXEPIN 25 MG CAP PO SCH ×2 (09:00→20:43)
[2017-04-16] MEDS: SENOKOT S TAB PO SCH ×2 (09:00→20:43)
[2017-04-16] MEDS: ENOXAPARIN 60 MG/0.6 ML SYR (J1650) SC SCH ×2 (09:00→20:43)
[2017-04-16] MEDS: MOM 30ML SUSPENSION UDC PO PRN (11:17)
--- NOTE | 2017-04-16 13:57 | IPNPDOC ---
Text Note Date of Service The patient was seen on 04/16/17. NOTE SUBJECTIVE: Patient is seen and examined in the morning. She states her pain is manageable with current pain medication regimen. No issue with oral intake. No shortness of breath. Starts having difficulty with bowel movements. OBJECTIVE: GENERAL: Pale, fatigued, no sign of acute distress at the time of encounter, alert and oriented times three. HEENT: Normocephalic, atraumatic. Extraocular motors grossly intact. CARDIOVASCULAR: Positive S1, S2, tachycardic. LUNGS: Clear to auscultation bilaterally. ABDOMEN: Soft, nontender, nondistended. Bowel sounds present. MUSCULOSKELETAL: There is a mass-like bulging located at the mid left upper chest, mild discomfort to palpation. No lower extremity edema. No sign of cyanosis. IMAGING STUDIES: CT angiogram showed evidence of pulmonary embolism in the right lower lobe pulmonary artery and extending into the medial and posterior basal segmental arteries of the right lower lobe. There are numerous metastatic lesions throughout the chest involving all lobes, the largest about 2.3 cm. Anterior chest wall mass destroying the upper margin of the os sternum adjacent to the manubrium with a mass measuring 8.9 x 3.5 x 7.9 cm. There are also axillary and chest wall masses deep to the right pectoralis minor. ASSESSMENT: 1. Recurrent breast cancer with metastasis. 2. Pulmonary embolism with right lower extremity deep venous thrombosis (DVT). 3. Anxiety/depression. 4. Hyperlipidemia. 5. Hypothyroidism. 6. Anemia. 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 Desires placement in hospice facility. Hospice service has been consulted. Continue current hospice medications. Pain is adequately controlled. Patient is on waiting list for hospice facility. Continue current management. VS,Fishbone, I+O VS, Fishbone, I+O Vital Signs Date Time Temp Pulse Resp B/P (MAP) Pulse Ox O2 Delivery O2 Flow Rate FiO2 04/16/17 11:49 16 Room Air 04/11/17 14:00 98.7 105 90/45 (60) 97 I&O- Last 24 Hours up to 6 AM 04/17/17 06:00 Intake Total 180 ml Output Total 325 ml Balance -145 ml LEXUS GORDON DO Apr 16, 2017 13:57
[2017-04-16] MEDS: MIRTAZAPINE 7.5MG PER 1/2 TABLET PO SCH (20:43)
[2017-04-16] MEDS: traZODone 50 MG TAB PO SCH (20:43)
[2017-04-16] MEDS: MIRALAX *UNIT DOSE* 17GM PACKET PO PRN (20:51)
[2017-04-17] MEDS: diazePAM 2 MG TAB PO PRN ×4 (00:51→20:38)
[2017-04-17] MEDS: NORCO, ANEXSIA 5/325MG TABLET (HYDROcodone/ACETAMINOPHEN) PO PRN ×5 (00:51→22:07)
[2017-04-17] MEDS: MORPHINE 10MG/0.5ML ORAL CONCENTRATE SOLUTION U/D SL PRN ×5 (00:52→20:38)
[2017-04-17] MEDS: LORazepam 1 MG TAB PO PRN ×4 (03:58→22:06)
[2017-04-17] MEDS: ENOXAPARIN 60 MG/0.6 ML SYR (J1650) SC SCH ×2 (08:39→20:38)
[2017-04-17] MEDS: SENOKOT S TAB PO SCH ×2 (08:39→20:38)
[2017-04-17] MEDS: DOXEPIN 25 MG CAP PO SCH ×2 (08:39→20:38)
[2017-04-17] MEDS: MOM 30ML SUSPENSION UDC PO PRN (08:43)
--- NOTE | 2017-04-17 11:38 | IPNPDOC ---
Text Note Date of Service The patient was seen on 04/17/17. NOTE SUBJECTIVE: Patient is seen and examined in the morning. She states her pain is manageable with current pain medication regimen. No issue with oral intake. No shortness of breath. Starts having difficulty with bowel movements. OBJECTIVE: GENERAL: Pale, fatigued, no sign of acute distress at the time of encounter, alert and oriented times three. HEENT: Normocephalic, atraumatic. Extraocular motors grossly intact. CARDIOVASCULAR: Positive S1, S2, tachycardic. LUNGS: Clear to auscultation bilaterally. ABDOMEN: Soft, nontender, nondistended. Bowel sounds present. MUSCULOSKELETAL: There is a mass-like bulging located at the mid left upper chest, mild discomfort to palpation. No lower extremity edema. No sign of cyanosis. IMAGING STUDIES: CT angiogram showed evidence of pulmonary embolism in the right lower lobe pulmonary artery and extending into the medial and posterior basal segmental arteries of the right lower lobe. There are numerous metastatic lesions throughout the chest involving all lobes, the largest about 2.3 cm. Anterior chest wall mass destroying the upper margin of the os sternum adjacent to the manubrium with a mass measuring 8.9 x 3.5 x 7.9 cm. There are also axillary and chest wall masses deep to the right pectoralis minor. ASSESSMENT: 1. Recurrent breast cancer with metastasis. 2. Pulmonary embolism with right lower extremity deep venous thrombosis (DVT). 3. Anxiety/depression. 4. Hyperlipidemia. 5. Hypothyroidism. 6. Anemia. 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 Desires placement in hospice facility. Hospice service has been consulted. Continue current hospice medications. Pain is adequately controlled. Patient is on waiting list for hospice facility. Continue current management. VS,Fishbone, I+O VS, Fishbone, I+O Vital Signs Date Time Temp Pulse Resp B/P (MAP) Pulse Ox O2 Delivery O2 Flow Rate FiO2 04/17/17 08:00 Room Air 04/17/17 07:50 16 04/11/17 14:00 98.7 105 90/45 (60) 97 I&O- Last 24 Hours up to 6 AM 04/18/17 06:00 Intake Total 240 ml Output Total 200 ml Balance 40 ml EDITH PEÑA MD Apr 17, 2017 11:38
[2017-04-17] MEDS: traZODone 50 MG TAB PO SCH (20:38)
[2017-04-17] MEDS: MIRTAZAPINE 7.5MG PER 1/2 TABLET PO SCH (20:38)
[2017-04-18] MEDS: LORazepam 1 MG TAB PO PRN ×6 (00:14→20:32)
[2017-04-18] MEDS: MORPHINE 10MG/0.5ML ORAL CONCENTRATE SOLUTION U/D SL PRN ×9 (00:14→22:47)
[2017-04-18] MEDS: NORCO, ANEXSIA 5/325MG TABLET (HYDROcodone/ACETAMINOPHEN) PO PRN ×2 (05:56→12:04)
[2017-04-18] MEDS: diazePAM 2 MG TAB PO PRN (05:56)
[2017-04-18] MEDS: SENOKOT S TAB PO SCH (08:40)
[2017-04-18] MEDS: DOXEPIN 25 MG CAP PO SCH ×2 (08:40→20:05)
[2017-04-18] MEDS: ENOXAPARIN 60 MG/0.6 ML SYR (J1650) SC SCH ×2 (08:40→20:05)
--- NOTE | 2017-04-18 10:38 | IPNPDOC ---
Text Note Date of Service The patient was seen on 04/18/17. NOTE SUBJECTIVE: patient complains of severe chest wall pain and left groin pain since yesterday evening. The pain meds have not been controlling the pain . She has no appetite because of the pain. No shortness of breath. OBJECTIVE: GENERAL: Pale, fatigued, no sign of acute distress at the time of encounter, alert and oriented times three. HEENT: Normocephalic, atraumatic. Extraocular motors grossly intact. CARDIOVASCULAR: Positive S1, S2, tachycardic. LUNGS: Clear to auscultation bilaterally. ABDOMEN: Soft, nontender, nondistended. Bowel sounds present. MUSCULOSKELETAL: There is a mass-like bulging located at the mid left upper chest, mild discomfort to palpation. No lower extremity edema. No sign of cyanosis. IMAGING STUDIES: CT angiogram showed evidence of pulmonary embolism in the right lower lobe pulmonary artery and extending into the medial and posterior basal segmental arteries of the right lower lobe. There are numerous metastatic lesions throughout the chest involving all lobes, the largest about 2.3 cm. Anterior chest wall mass destroying the upper margin of the os sternum adjacent to the manubrium with a mass measuring 8.9 x 3.5 x 7.9 cm. There are also axillary and chest wall masses deep to the right pectoralis minor. ASSESSMENT: 1. Recurrent breast cancer with metastasis : will increase roxanol. will also give ativan . will dc valium. 2. Pulmonary embolism with right lower extremity deep venous thrombosis (DVT). 3. Anxiety/depression. 4. Hyperlipidemia. 5. Hypothyroidism. 6. Anemia. 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 Desires placement in hospice facility. Hospice service has been consulted. Continue current hospice medications. Pain is adequately controlled. Patient is on waiting list for hospice facility. Continue current management. VS,Fishbone, I+O VS, Fishbone, I+O Vital Signs Date Time Temp Pulse Resp B/P (MAP) Pulse Ox O2 Delivery O2 Flow Rate FiO2 04/18/17 09:19 18 04/18/17 06:26 Room Air I&O- Last 24 Hours up to 6 AM 04/19/17 06:00 Intake Total 120 ml Balance 120 ml EDITH PEÑA MD Apr 18, 2017 10:38
[2017-04-18] MEDS ORDERED: ONDANSETRON 4 MG ORAL DISINTEGRATING TAB (S0181) PO PRN (19:00)
[2017-04-18] MEDS ORDERED: MAALOX 30 ML SUSP *UDC PO PRN (19:00)
[2017-04-18] MEDS: traZODone 50 MG TAB PO SCH (20:05)
[2017-04-18] MEDS: MIRTAZAPINE 7.5MG PER 1/2 TABLET PO SCH (20:05)
[2017-04-19] MEDS: MORPHINE 10MG/0.5ML ORAL CONCENTRATE SOLUTION U/D SL PRN ×9 (01:24→22:25)
--- NOTE | 2017-04-19 06:47 | IPNPDOC ---
Text Note Date of Service The patient was seen on 04/19/17. NOTE SUBJECTIVE: Pain better controlled this am after increasing the narcotics. Patient is comfortable. No shortness of breath. OBJECTIVE: GENERAL: Pale, fatigued, no sign of acute distress at the time of encounter, alert and oriented times three. HEENT: Normocephalic, atraumatic. Extraocular motors grossly intact. CARDIOVASCULAR: Positive S1, S2, tachycardic. LUNGS: Clear to auscultation bilaterally. ABDOMEN: Soft, nontender, nondistended. Bowel sounds present. MUSCULOSKELETAL: There is a mass-like bulging located at the mid left upper chest, mild discomfort to palpation. No lower extremity edema. No sign of cyanosis. IMAGING STUDIES: CT angiogram showed evidence of pulmonary embolism in the right lower lobe pulmonary artery and extending into the medial and posterior basal segmental arteries of the right lower lobe. There are numerous metastatic lesions throughout the chest involving all lobes, the largest about 2.3 cm. Anterior chest wall mass destroying the upper margin of the os sternum adjacent to the manubrium with a mass measuring 8.9 x 3.5 x 7.9 cm. There are also axillary and chest wall masses deep to the right pectoralis minor. ASSESSMENT: 1. Recurrent breast cancer with metastasis : will increase roxanol. will also give ativan . will dc valium. 2. Pulmonary embolism with right lower extremity deep venous thrombosis (DVT). 3. Anxiety/depression. 4. Hyperlipidemia. 5. Hypothyroidism. 6. Anemia. 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 Desires placement in hospice facility. Hospice service has been consulted. Continue current hospice medications. Pain is adequately controlled. Patient is on waiting list for hospice facility. Continue current management. VS,Fishbone, I+O VS, Fishbone, I+O Vital Signs Date Time Temp Pulse Resp B/P (MAP) Pulse Ox O2 Delivery O2 Flow Rate FiO2 04/19/17 06:04 17 04/18/17 20:44 Room Air EDITH PEÑA MD Apr 19, 2017 06:47
[2017-04-19] MEDS: DOXEPIN 25 MG CAP PO SCH ×2 (08:17→20:23)
[2017-04-19] MEDS: ENOXAPARIN 60 MG/0.6 ML SYR (J1650) SC SCH ×2 (08:18→20:23)
[2017-04-19] MEDS: LORazepam 1 MG TAB PO PRN ×4 (13:04→22:24)
[2017-04-19] MEDS ORDERED: MORPHINE 30 MG SA TAB PO ONE (17:30)
[2017-04-19] MEDS: traZODone 50 MG TAB PO SCH (20:23)
[2017-04-19] MEDS: MIRTAZAPINE 7.5MG PER 1/2 TABLET PO SCH (20:23)
[2017-04-19] MEDS ORDERED: MORPHINE 30 MG SA TAB PO SCH (21:00)
[2017-04-20] MEDS: LORazepam 1 MG TAB PO PRN ×9 (00:53→22:47)
[2017-04-20] MEDS: MORPHINE 10MG/0.5ML ORAL CONCENTRATE SOLUTION U/D SL PRN ×9 (00:53→22:47)
[2017-04-20] MEDS: DOXEPIN 25 MG CAP PO SCH ×2 (08:14→21:39)
[2017-04-20] MEDS: MORPHINE 30 MG SA TAB PO SCH ×2 (08:14→21:39)
[2017-04-20] MEDS: ENOXAPARIN 60 MG/0.6 ML SYR (J1650) SC SCH ×2 (08:15→21:39)
--- NOTE | 2017-04-20 10:18 | IPNPDOC ---
Text Note Date of Service The patient was seen on 04/20/17. NOTE SUBJECTIVE: Pain better controlled this am after starting MS contin. Patient is comfortable. No shortness of breath. OBJECTIVE: GENERAL: Pale, fatigued, no sign of acute distress at the time of encounter, alert and oriented times three. HEENT: Normocephalic, atraumatic. Extraocular motors grossly intact. CARDIOVASCULAR: Positive S1, S2, tachycardic. LUNGS: Clear to auscultation bilaterally. ABDOMEN: Soft, nontender, nondistended. Bowel sounds present. MUSCULOSKELETAL: There is a mass-like bulging located at the mid left upper chest, mild discomfort to palpation. No lower extremity edema. No sign of cyanosis. IMAGING STUDIES: CT angiogram showed evidence of pulmonary embolism in the right lower lobe pulmonary artery and extending into the medial and posterior basal segmental arteries of the right lower lobe. There are numerous metastatic lesions throughout the chest involving all lobes, the largest about 2.3 cm. Anterior chest wall mass destroying the upper margin of the os sternum adjacent to the manubrium with a mass measuring 8.9 x 3.5 x 7.9 cm. There are also axillary and chest wall masses deep to the right pectoralis minor. ASSESSMENT: 1. Recurrent breast cancer with metastasis : will increase roxanol. will also give ativan . will dc valium. 2. Pulmonary embolism with right lower extremity deep venous thrombosis (DVT). 3. Anxiety/depression. 4. Hyperlipidemia. 5. Hypothyroidism. 6. Anemia. 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 Desires placement in hospice facility. Hospice service has been consulted. Continue current hospice medications. Pain is adequately controlled. Patient is on waiting list for hospice facility. Continue current management. VS,Fishbone, I+O VS, Fishbone, I+O Vital Signs Date Time Temp Pulse Resp B/P (MAP) Pulse Ox O2 Delivery O2 Flow Rate FiO2 04/20/17 08:14 20 04/19/17 21:24 Room Air 04/19/17 09:00 2.0 I&O- Last 24 Hours up to 6 AM 04/21/17 06:00 Intake Total 90 ml Output Total 0 ml Balance 90 ml EDITH PEÑA MD Apr 20, 2017 10:18
[2017-04-20] MEDS: MOM 30ML SUSPENSION UDC PO PRN (16:01)
[2017-04-20] MEDS: MIRTAZAPINE 7.5MG PER 1/2 TABLET PO SCH (21:39)
[2017-04-20] MEDS: traZODone 50 MG TAB PO SCH (21:39)
[2017-04-21] MEDS: MORPHINE 10MG/0.5ML ORAL CONCENTRATE SOLUTION U/D SL PRN ×7 (06:04→19:32)
[2017-04-21] MEDS: LORazepam 1 MG TAB PO PRN ×6 (06:04→19:31)
[2017-04-21] MEDS: ENOXAPARIN 60 MG/0.6 ML SYR (J1650) SC SCH ×2 (08:04→20:57)
[2017-04-21] MEDS: DOXEPIN 25 MG CAP PO SCH ×2 (08:04→20:58)
[2017-04-21] MEDS: MORPHINE 30 MG SA TAB PO SCH ×2 (08:04→20:58)
[2017-04-21] MEDS ORDERED: ACETAMINOPHEN TAB 650MG DOSE (2X325MG) PO PRN (16:15)
[2017-04-21] MEDS: MOM 30ML SUSPENSION UDC PO PRN (16:35)
[2017-04-21] MEDS: traZODone 50 MG TAB PO SCH (20:57)
[2017-04-21] MEDS: MIRTAZAPINE 7.5MG PER 1/2 TABLET PO SCH (20:57)
[2017-04-22] MEDS: LORazepam 1 MG TAB PO PRN ×5 (05:58→18:59)
[2017-04-22] MEDS: MORPHINE 10MG/0.5ML ORAL CONCENTRATE SOLUTION U/D SL PRN ×5 (05:59→18:59)
[2017-04-22] MEDS: ENOXAPARIN 60 MG/0.6 ML SYR (J1650) SC SCH ×2 (08:12→20:29)
[2017-04-22] MEDS: MORPHINE 30 MG SA TAB PO SCH ×2 (08:13→20:30)
[2017-04-22] MEDS: DOXEPIN 25 MG CAP PO SCH ×2 (08:13→20:29)
[2017-04-22] MEDS: MIRTAZAPINE 7.5MG PER 1/2 TABLET PO SCH (20:29)
[2017-04-22] MEDS: MOM 30ML SUSPENSION UDC PO PRN (20:30)
[2017-04-22] MEDS: traZODone 50 MG TAB PO SCH (20:30)
[2017-04-23] MEDS: LORazepam 1 MG TAB PO PRN ×5 (05:50→18:13)
[2017-04-23] MEDS: MORPHINE 10MG/0.5ML ORAL CONCENTRATE SOLUTION U/D SL PRN ×5 (05:50→18:14)
[2017-04-23] MEDS: MOM 30ML SUSPENSION UDC PO PRN (08:35)
[2017-04-23] MEDS: MIRALAX *UNIT DOSE* 17GM PACKET PO PRN (08:35)
[2017-04-23] MEDS: DOXEPIN 25 MG CAP PO SCH ×2 (08:36→20:47)
[2017-04-23] MEDS: ENOXAPARIN 60 MG/0.6 ML SYR (J1650) SC SCH ×2 (08:36→20:48)
[2017-04-23] MEDS: MORPHINE 30 MG SA TAB PO SCH ×2 (08:37→20:48)
[2017-04-23] MEDS: MIRTAZAPINE 7.5MG PER 1/2 TABLET PO SCH (20:47)
[2017-04-23] MEDS: traZODone 50 MG TAB PO SCH (20:47)
[2017-04-24] MEDS: MORPHINE 30 MG SA TAB PO SCH (08:38)
[2017-04-24] MEDS: DOXEPIN 25 MG CAP PO SCH (08:38)
[2017-04-24] MEDS: ENOXAPARIN 60 MG/0.6 ML SYR (J1650) SC SCH (08:38)
[2017-04-24] MEDS: LORazepam 1 MG TAB PO PRN (09:58)
[2017-04-24] MEDS: MORPHINE 10MG/0.5ML ORAL CONCENTRATE SOLUTION U/D SL PRN (09:58)
[2017-04-24] MEDS ORDERED: MORP20SO3 PO (10:28)
[2017-04-24] MEDS ORDERED: LORA0.5T11 PO (10:28)
[2017-04-24] MEDS ORDERED: TRAZO50TA PO (10:34)
[2017-04-24] MEDS ORDERED: ATRO1OPD PO (10:34)
[2017-04-24] MEDS ORDERED: ONDA4TAB6 PO (10:34)
[2017-04-24] MEDS ORDERED: MYLASSUD PO (10:34)
[2017-04-24] MEDS ORDERED: MORP30TASA PO (10:34)
[2017-04-24] MEDS ORDERED: MILKSUS PO (10:34)
--- NOTE | 2017-04-28 14:46 | DSES ---
DATE OF ADMISSION: 04/10/2017 DATE OF DISCHARGE: 04/24/2017 PRIMARY CARE PROVIDER: Lesly Armendariz DISPOSITION: Patient discharged to Hospice house. DISCHARGE DIAGNOSES: Recurrent breast cancer with metastasis to bones and to lungs. Pulmonary embolism. Left lower extremity deep venous thrombosis (DVT). Hypothyroid. Hyperlipidemia. Anxiety and depression. Chronic anemia. Chronic pain. DISCHARGE MEDICATIONS: - MS Contin 30 mg by mouth twice a day - morphine sulfate concentrate 100 mg per 5 mL, 0.25-1 mL by mouth every 2 hours as needed pain or dyspnea - lorazepam 0.5 mg by mouth every 4 hours as needed anxiety or agitation - atropine sulfate 1% solution 1-2 drops by mouth every 2 hours as needed terminal secretions - aluminum/magnesium/simethicone suspension 30 mL by mouth every 4 hours as needed indigestion - milk of magnesia 30 mL by mouth daily as needed constipation - ondansetron 4 mg by mouth every 4 hours as needed nausea or vomiting - trazodone 50 mg at bedtime - doxepin 25 mg by mouth twice a day - mirtazapine 7.5 mg at bedtime HOSPITAL COURSE: This is a 66-year-old female with recurrent breast cancer with lung, mediastinal, and bone metastasis, who had been considering hospice care at home, presented to the hospital with left leg pain and swelling, found to have occlusive left lower extremity DVT from groin to popliteal fossa. Patient was initially started on Lovenox. Patient was also found to have pulmonary embolism, but subsequently patient did not want to be on Lovenox for life and she decided to pursue comfort measures. Patient was placed on comfort measures only (GRIPS) status and subsequently changed to alternate level of care (ALC) status on 04/16/2017 pending placement in Hospice House. Patient's chest pain from the mass was severe, so patient was stated on MS Contin, which seemed to help her with the pain so this was continued on discharge. Patient ultimately got a bed in the [facility]osp[facility] on 04/24/2017 and was subsequently transferred there. DISPOSITION: Patient discharged to [facility] for terminal care.
== END 2017-04-24 11:05 | disposition hospice, home (50) | DRG 299 ==
LOC: EDBD 11:37 → M ED 11:37 → M ED INP 19:28 → M MS4PR 04-11 → M MS5PR 04-13 17:52
PROVIDERS: ADMIT Internal Medicine; ATTEND Internal Medicine Nephrology
DX: I82.412 Acute embolism and thrombosis of left femoral vein (principal); I26.99 Other pulmonary embolism without acute cor pulmonale; E87.1 Hypo-osmolality and hyponatremia; C78.00 Secondary malignant neoplasm of unspecified lung; C78.1 Secondary malignant neoplasm of mediastinum; Z66 Do not resuscitate; Z51.5 Encounter for palliative care; G89.3 Neoplasm related pain (acute) (chronic); E78.5 Hyperlipidemia, unspecified; F32.9 Major depressive disorder, single episode, unspecified; E03.9 Hypothyroidism, unspecified; C50.911 Malignant neoplasm of unspecified site of right female breast; Z90.11 Acquired absence of right breast and nipple; Z92.21 Personal history of antineoplastic chemotherapy; Z90.710 Acquired absence of both cervix and uterus; Z91.011 Allergy to milk products; Z91.048 Other nonmedicinal substance allergy status; Z79.899 Other long term (current) drug therapy; Z95.828 Presence of other vascular implants and grafts